=== PATIENT | female | born 1930 | race Asian ===

== ENCOUNTER 2017-07-24 16:28 | Emergency (ER) | payer MEDICARE, OTHER ==
[~2017-07-24] VITALS: Ht 162.6 cm; Wt 75.0 kg
[2017-07-24 16:47] LABS: GLUCOSE,POINT OF CARE 108 MG/DL (70-110)
[2017-07-24 17:18] VITALS: BP 108/54
[2017-07-24] MEDS ORDERED: DSS100 PO (17:43)
[2017-07-24] MEDS ORDERED: PANT40TA25 PO (17:43)
[2017-07-24] MEDS ORDERED: AMLO-512 PO (17:43)
[2017-07-24] MEDS ORDERED: CLOP75 PO (17:43)
[2017-07-24] MEDS ORDERED: DOXY100C PO (17:43)
[2017-07-24] MEDS ORDERED: ATOR40TA28 PO (17:43)
[2017-07-24] MEDS ORDERED: GABA-531 PO (17:43)
[2017-07-24] MEDS ORDERED: LOSA50TA37 PO (17:43)
[2017-07-24] MEDS ORDERED: ALEN70TA48 PO (17:43)
== END 2017-07-24 18:35 | disposition home or self-care (01) ==
LOC: EMS 16:31
DX: R41.82 Altered mental status, unspecified (principal); I10 Essential (primary) hypertension; E78.00 Pure hypercholesterolemia, unspecified
CPT/HCPCS: 82948; 82962; 93005; 99285